=== PATIENT | male | born 1995 | race Caucasian/White ===

== ENCOUNTER 2021-06-01 11:44 | Day surgery (SDC) | payer OTHER ==
[2021-05-29 10:43] VITALS: BMI 27.2
[~2021-06-01 11:44] MED LIST: LACTATED RINGERS 1,000 ML IV SCH; LIDOCAINE 1% (10MG/ML) FOR IV START INTRADERMA PRN
[2021-06-01 12:53] VITALS: TEMP 98
[2021-06-01] MEDS ORDERED: PROPOFOL 10 MG/ML 20 ML VIAL IV ONE (13:35)
--- NOTE | 2021-06-01 13:58 | P.PCN ---
Date of Procedure: 06/01/21 Procedure(s) Performed: BRIEF HISTORY: Patient is a []-year-old pleasant white male scheduled for an elective colonoscopy as a part of evaluation of chronic diarrhea for the last 5- 6 years duration. 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 Suresh at [facility]. He was treated with mesalamine and prednisone with no help. He moved to [facility] and was seen by gastritis recommended biologic therapy. However the patient did not start any medications and recently moved back to . He continues to have 5-6 loose watery bowel movements daily and hence scheduled for colonoscopy to assess PROCEDURE PERFORMED: Colonoscopy with biopsy. PREOPERATIVE DIAGNOSIS: History of ulcerative proctitis diagnosed in 2059, now with chronic diarrhea. IV sedation per Anesthesia. PROCEDURE: After informed consent was obtained, the patient, was brought into the endoscopy unit. IV sedation was administered by Anesthesia under continuous monitoring. Digital rectal examination was normal. Initially the Olympus CF-160 flexible video colonoscope was then inserted in the rectum, gradually advanced into the cecum without any difficulty. Careful examination was performed as the scope was gradually being withdrawn. Ileocecal valve and the appendiceal orifice were visualized and appeared normal. Terminal ileum was intubated and 20 cm visualized and appeared normal. Prep was excellent. Mucosa of the cecum, ascending colon, transverse colon, descending colon, sigmoid colon, and rectum appeared normal. In the proximal rectum there were thickened folds with mucosal erythema extending from 15-20 cm from the anal verge with no erosions or ulcerations and exudates. Biopsies were done from this area. The distal rectum appeared normal. Retroflexion was performed in the rectum and no lesions were seen. The patient tolerated the procedure well. IMPRESSION: Erythema with thickened folds noted in the proximal rectum extending from 15-20 cm from the anal verge with no mucosal ulcerations or erosions status post multiple biopsies to evaluate for an inflammatory bowel disease Distal rectum appeared normal Rest of the colon appeared normal Terminal ileum was normal RECOMMENDATIONS: Findings of this examination were discussed with the patient well as his family. He was advised to follow with the biopsy results. He'll be seen in office in one to 2 weeks..
[2021-06-01 14:10] VITALS: RESP 16
[2021-06-01 14:21] VITALS: BP 105/67; PULSE 79
== END 2021-06-01 14:42 | disposition home or self-care (01) ==
LOC: ORWHC2ENDO 11:44
PROVIDERS: ATTEND Internal Medicine Gastroenterology
DX: K52.3 Indeterminate colitis (principal); Z88.0 Allergy status to penicillin; Z88.2 Allergy status to sulfonamides; J45.909 Unspecified asthma, uncomplicated; K21.9 Gastro-esophageal reflux disease without esophagitis; Z79.899 Other long term (current) drug therapy
CPT/HCPCS: 45380; J2704; 88305